=== PATIENT | female | born 1990 ===

== ENCOUNTER 2017-08-11 10:02 | Inpatient (IN) | payer OTHER ==
[~2017-08-11] VITALS: Ht 165.1 cm; Wt 2.7 kg
[~2017-08-11 10:02] MED LIST: PRENATAL TABLE1 EAC2 PO
== END 2017-08-14 11:35 | DRG 766 ==
LOC: LDR 10:02 → O/R 13:54 → OB/GYN 16:15
PROVIDERS: Obstetrics & Gynecology
PROC: 0UL70ZZ Occlusion of Bilateral Fallopian Tubes, Open Approach (ICD-10-PCS; 2017-08-11)
PROC: 4A033R1 Measurement of Arterial Saturation, Peripheral, Percutaneous Approach (ICD-10-PCS; 2017-08-11)
PROC: 4A1HXCZ Monitoring of Products of Conception, Cardiac Rate, External Approach (ICD-10-PCS; 2017-08-11)
PROC: 10D00Z1 Extraction of Products of Conception, Low, Open Approach (ICD-10-PCS; principal; 2017-08-11 10:00)
DX: O75.3 Other infection during labor (principal); Z3A.38 38 weeks gestation of pregnancy; Z37.0 Single live birth; Z30.2 Encounter for sterilization